=== PATIENT | male | born 1950 | race Caucasian/White ===

== ENCOUNTER 2017-11-29 09:37 | Inpatient (IN) | payer MEDICARE ==
[~2017-11-29] VITALS: Ht 182.9 cm; Wt 92.5 kg
[2017-11-29 10:21] LABS: BASOPHILS % 0.2 % (0.0-1.0); EOSINOPHILS % 0.2 % (0.0-6.0); HEMATOCRIT 42.8 % (38.2-49.6); HEMOGLOBIN 15.3 g/dL (14.0-18.0); LYMPHOCYTES # (AUTO) 1.2 (1.0-3.2); LYMPHOCYTES % 8.8 % (18.0-39.1); MEAN CORPUSCULAR HGB CONC 35.7 g/dL (31-35); MEAN CORPUSCULAR VOLUME 103.6 fL (81-99); MONOCYTES # (AUTO) 1.4 (0.2-0.8); MONOCYTES % 10.4 % (4.4-11.3); NEUTROPHILS # (AUTO) 10.9 (2.1-6.9); PLATELET COUNT 175 x10e3/uL (140-360); RED BLOOD COUNT 4.13 x10e6/uL (4.3-5.7); RED CELL DISTRIBUTION WIDTH 12.4 % (11.7-14.4)
[2017-11-29 10:31] LABS: ALANINE AMINOTRANSFERASE 22 IU/L (0-55); ALBUMIN 3.7 g/dL (3.5-5.0); ALBUMIN/GLOBULIN RATIO 0.9 (0.8-2.0); ALKALINE PHOSPHATASE 71 IU/L (40-150); ANION GAP 14.4 mmol/L (8-16); BLOOD UREA NITROGEN 18 mg/dL (7-26); BUN/CREATININE RATIO 20 (6-25); CARBON DIOXIDE 30 mmol/L (22-29); CHLORIDE 100 mmol/L (98-107); CREATININE, SERUM 0.89 mg/dL (0.72-1.25); EST GLOMERULAR FILTRATION RATE > 60 ML/MIN (60-); GLUCOSE 112 mg/dL (74-118); MAGNESIUM 1.4 MG/DL (1.3-2.1); PHOSPHORUS 3.1 MG/DL (2.3-4.7); POTASSIUM 3.4 mmol/L (3.5-5.1); SODIUM 141 mmol/L (136-145)
--- NOTE | 2017-11-29 11:08 | Diagnostic Imaging Report ---
Exam: Head CT without contrast History: Weakness, unable to walk Comparison studies: None Technique: Axial images were obtained from the skull base to the vertex. Coronal and sagittal images reconstructed from the axial data. Intravenous contrast: None Findings: Scalp: No abnormalities. Bones: No fractures, blastic or lytic lesions. Brain sulci: Mildly prominent. Ventricles: Mild compensatory dilatation. No hydrocephalus. Extra-axial spaces: No masses, no fluid collection. Parenchyma: No mass, acute hemorrhage or acute cortical vascular insults. A few hypodensities in the supratentorial white matter are nonspecific but most compatible with chronic small vessel ischemic changes. Sellar/suprasellar region: No abnormalities. Craniocervical junction: Patent foramen magnum. No Chiari one malformation. Incidental findings: Atherosclerotic calcifications in the carotid siphons an right intradural vertebral artery. Intraocular lens replacements related to previous cataract surgery. IMPRESSION: No acute intracranial abnormalities. Chronic findings: 1. Mild generalized volume loss. 2. Mild microvascular ischemic changes. Signed by: Dr. Reed Aaron M.D. on 11/29/2017 11:05 AM
[2017-11-29] MEDS ORDERED: MAGNESIUM SULFATE 2GM/50ML 50 ML IV ONE (11:15)
[2017-11-29] MEDS ORDERED: SODIUM CHLORIDE 0.9% 1000ML 1,000 ML IV ONE (11:15)
--- NOTE | 2017-11-29 11:32 | Diagnostic Imaging Report ---
PROCEDURE:L-SPINE COMPLETE COMPARISON:None. INDICATIONS:LOW BACK PAIN, CAN NOT WALK FINDINGS: There are 5 lumbar-type vertebral bodies. Degenerative disc changes in the lumbosacral spine, worse at L5-S1, with marked intervertebral disc space narrowing. Grade 1 anterolisthesis of L5 on L4. Facet hypertrophy. L5-S1. Anterior wedging of the L2 and L4 vertebral bodies with approximately 25% height loss. No acute, displaced fracture or dislocation. No lytic or blastic lesions. Bilateral oblique views show no spondylolysis. Atherosclerotic calcification of the distal abdominal aorta. The sacroiliac joints are unremarkable. CONCLUSION: Age-indeterminate compression deformities of the L2 and L4 vertebral bodies with approximately 25% height loss. Degenerative disc and joint changes in the lumbosacral spine, worse at L5-S1. Grade 1 anterolisthesis of L5 on L4. Alpesh Krause M.D. Dictated by: Alpesh Krause M.D. on 11/29/2017 at 11:32 Electronically approved by: Alpesh Krause M.D. on 11/29/2017 at 11:32
[2017-11-29] MEDS ORDERED: ENALAPRILAT IV INJ 1.25 MG/ML VIAL IV STA (12:13)
[2017-11-29] MEDS ORDERED: ACETAMINOPHEN 325 MG TAB PO ONE (12:15)
[2017-11-29 12:25] LABS: APPEARANCE,CSF CLEAR (CLEAR); COLOR,CSF COLORLESS (COLORLESS); TUBE NUMBER 3
[2017-11-29 12:26] LABS: WHITE BLOOD CELL,CSF 0 cells/uL (0-5)
[2017-11-29] MEDS ORDERED: SODIUM CHLORIDE FLUSH 10 ML SYR INJ PRN (13:00)
[2017-11-29] MEDS ORDERED: ONDANSETRON HCL INJ 2 MG/ML VIAL IV PRN (13:00)
--- OUTSIDE RECORDS SUMMARY | 2017-11-29 13:28 | XMS REPORT ---
Author Author [facility] Address Unknown Phone Unavailable Care Team Providers Care Field Cane Scale Clerk Name Role Phone CASA SEE Unavailable Unavailable Problems This patient has no known problems. Allergies, Adverse Reactions, Alerts This patient has no known allergies or adverse reactions. Medications This patient has no known medications. Results Test Description Test Time Test Comments Text Results Atomic Results Result Comments CT BRAIN WO [place] [address] Patient Name: SRIRAM JAY MR #: [id number] : 1950 Age/Sex: 67/M Req #: [id number] Adm Physician: Ordered by: CASA SEE MD Report #: [id number] Location: ER Room/Bed: Procedure: [id number] CT/CT BRAIN WO Exam Date: 11/29/17 Exam Time: 1023 REPORT STATUS: Signed Exam: Head CT without contrast History: Weakness, unable to walk Comparison studies: None Technique: Axial images were obtained from the skull base to the vertex. Coronal and sagittal images reconstructed from the axial data. Intravenous contrast: None Findings: Scalp: No abnormalities. Bones: No fractures, blastic or lytic lesions. Brain sulci: Mildly prominent. Ventricles: Mild compensatory dilatation. No hydrocephalus. Extra-axial spaces: No masses, no fluid collection. Parenchyma: No mass, acute hemorrhage or acute cortical vascular insults. A few hypodensities in the supratentorial white matter are nonspecific but most compatible with chronic small vessel ischemic changes. Sellar/suprasellar region: No abnormalities. Craniocervical junction: Patent foramen magnum. No Chiari one malformation. Incidental findings: Atherosclerotic calcifications in the carotid siphons an right intradural vertebral artery. Intraocular lens replacements related to previous cataract surgery. IMPRESSION: No acute intracranial abnormalities. Chronic findings: 1. Mild generalized volume loss. 2. Mild microvascular ischemic changes. Signed by: Dr. Frandy Aaron M.D. on 11/29/2017 11:05 AM Dictated By: FRANDY AARON MD 04 Transcribed By: JAKUB on 11/29/17 110 COPY TO: CASA SEE MD SP LUMBAR, COMPLETE MIN 4VW [place] [address] Patient Name: SRIRAM JAY MR #: [id number] : 1950 Age/Sex: 67/M Req #: [id number] Adm Physician: Ordered by: CASA SEE MD Report #: [id number] Location: ER Room/Bed: Procedure: [id number] DX/SP LUMBAR, COMPLETE MIN 4VW Exam Date: 11/29/17 Exam Time: 1100 REPORT STATUS: Signed PROCEDURE: L-SPINE COMPLETE COMPARISON: None. INDICATIONS: LOW BACK PAIN, CAN NOT WALK FINDINGS: There are 5 lumbar-type vertebral bodies. Degenerative disc changes in the lumbosacral spine, worse at L5-S1, with marked intervertebral disc space narrowing. Grade 1 anterolisthesis of L5 on L4. Facet hypertrophy. L5-S1. Anterior wedging of the L2 and L4 vertebral bodies with approximately 25% height loss. No acute, displaced fracture or dislocation. No lytic or blastic lesions. Bilateral oblique views show no spondylolysis. Atherosclerotic calcification of the distal abdominal aorta. The sacroiliac joints are unremarkable. CONCLUSION: Age- indeterminate compression deformities of the L2 and L4 vertebral bodies with approximately 25% height loss. Degenerative disc and joint changes in the lumbosacral spine, worse at L5-S1. Grade 1 anterolisthesis of L5 on L4. Rojelio Krause M.D. Dictated by: Rojelio Krause M.D. on 2017 at 11:32 Electronically approved by: Rojelio Krause M.D. on at 11:32 Dictated By: ROJELIO KRAUSE MD 1132 Transcribed By: JANAY on 11/29/17 1132 COPY TO: CASA SEE MD
[2017-11-29 14:05] LABS: KETONES,URINE 2+ (NEGATIVE); LEUKOCYTE ESTERASE ,URINE TRACE (NEGATIVE); NITRITE,URINE NEGATIVE (NEGATIVE); URINE UROBILINOGEN 4 mg/dL (0.2 - 1)
--- NOTE | 2017-11-29 14:05 | Diagnostic Imaging Report ---
PROCEDURE:KNEE THREE VIEWS BILATERAL COMPARISON:None. INDICATIONS:KNEE PAIN, OSTEOARTHRITIS FINDINGS: Right: The normal mineralization. No acute displaced fracture or dislocation. Mild tricompartmental degenerative joint disease of the right knee, with presence of patellar marginal osteophytes. Linear calcification in the femoral tibial compartments, consistent with chondrocalcinosis. No lytic or blastic lesions. Small suprapatellar effusion. Left: Normal mineralization. No acute displaced fracture or dislocation. No lytic or blastic lesions. Mild tricompartmental degenerative joint disease, with presence of patellar and marginal osteophytosis. Linear calcification in the media of femoral tibial space consistent with chondrocalcinosis. Moderate to large suprapatellar effusion. CONCLUSION: 1. No acute abnormalities. 2. Mild bilateral tricompartmental degenerative joint disease. 3. Small right and moderate to large left suprapatellar effusions. 4. Bilateral chondrocalcinosis. Alpesh Krause M.D. Dictated by: Alpesh Krause M.D. on 11/29/2017 at 14:06 Electronically approved by: Alpesh Krause M.D. on 11/29/2017 at 14:06
[2017-11-29 14:06] LABS: BILIRUBIN,URINE 1+ (NEGATIVE); CLARITY,URINE CLEAR (CLEAR); COLOR,URINE ORANGE (YELLOW); PROTEIN,URINE DIPSTICK 1+ (NEGATIVE)
[2017-11-29 14:21] LABS: EPITHELIAL CELLS,URINE FEW /LPF; RBC,URINE 0-5 /HPF (0-5); WBC,URINE (MAN) 0-5 /HPF (0-5)
[2017-11-29] MEDS ORDERED: GADOBENATE DIMEGLUMINE 1 ML IV ONE (14:54)
[2017-11-29] MEDS ORDERED: THIAMINE HCL INJ 100 MG/ML 2ML VIAL IV ONE (15:00)
[2017-11-29] MEDS ORDERED: THIAMINE HCL INJ 100 MG in SODIUM CHLORIDE 0.9% 50ML 50 ML IV SCH (15:45)
[2017-11-29] MEDS ORDERED: AMLODIPINE BESYLATE 10 MG TAB PO SCH (16:15)
[2017-11-29] MEDS ORDERED: LORAZEPAM INJ 2 MG/ML VIAL IV PRN (16:15)
[2017-11-29] MEDS ORDERED: HYDRALAZINE HCL 20 MG/ML VIAL IV PRN (16:15)
[2017-11-29] MEDS: FAMOTIDINE 20 MG TAB PO SCH (16:16)
[2017-11-29] MEDS: ENOXAPARIN SOD INJ 40 MG/0.4 ML SYR SC SCH (16:16)
--- NOTE | 2017-11-29 17:46 | History and Physical ---
PRIMARY CARE PHYSICIAN: The patient does not have a PCP. He has not been to the doctor in years. CHIEF COMPLAINT: Bilateral leg weakness and urinary and fecal incontinence. HISTORY OF PRESENT ILLNESS: Mr. Edwards is a 67-year-old gentleman who has had progressive ambulatory dysfunction for the past year, getting slower and weaker and having more difficulty getting up. He has bilateral arthritis of the knees with some joint effusions. Two days ago the patient became incontinent of stool and urine and became progressively weaker in the lower extremities with difficulty getting up and walking. The patient does have a history of back surgery 30 years ago and left knee surgery 30 years ago. REVIEW OF SYSTEMS: He denies fever, chills or weight loss. He denies sinus congestion or sore throat. Denies chest pain or palpitations. Denies shortness of breath, wheezing or cough. Denies abdominal pain, nausea, vomiting or melena. He has fecal incontinence. He denies dysuria or flank pain. He has urinary incontinence. He has joint pain in both knees. He has lower extremity weakness. He denies headache or vertigo, but he does have some dementia. He denies loss of consciousness. He has some depression and has a history of bipolar and anxiety and extensive alcohol consumption. PAST MEDICAL HISTORY: Significant for hypertension for which he has not been on any medication for the last couple of years. He says his blood pressure has been good at home. He is taking no chronic medication. He does have a history of heavy alcohol consumption in the past. He is on no chronic medication. He has a history of back and knee surgery many years ago. ALLERGIES: NO KNOWN DRUG ALLERGIES. FAMILY HISTORY: Unremarkable. SOCIAL HISTORY: The patient is . Sudanese is his primary language. He lives alone. He has good social support. He is generally independently functioning, although has required quite a bit of assistance in the last couple of days. PHYSICAL EXAMINATION PSYCHIATRIC: The patient is alert and oriented times 3. He does have some mild confusion on more elaborate questioning. He is in no acute distress. Has a normal body habitus. VITAL SIGNS: Blood pressure initially 174/95, currently 148/87. Pulse 95 originally, now 77. Respiratory rate 16. O2 sat 100% on room air. Temperature 99.8. HEENT: Head is atraumatic. His eyes are anicteric with clear conjunctivae. Ears and nares are without erythema or discharge. Oropharynx is clear. NECK: Is supple with no mass or thyromegaly. LYMPHATIC SYSTEM: He has no cervical, inguinal or axillary adenopathy. CARDIOVASCULAR: Heart has a regular rate and rhythm without murmur or heart extra sounds. He has no carotid bruit. Has no peripheral edema. Weak dorsal pedal pulses. RESPIRATORY: Clear to auscultation and percussion with normal respiratory effort. GASTROINTESTINAL: Abdomen is soft without organomegaly, masses or tenderness. Normal bowel sounds present. CUTANEOUS: His skin is warm and dry to touch with no rash or skin breakdown. MUSCULOSKELETAL: His joints are in normal alignment. Both of his knees are somewhat hypertrophic and there is moderate effusion on the left knee and small effusion on the right knee. There is some warmth to palpation. He has no calf tenderness. NEUROLOGIC: Shows weakness in the lower extremities, left side greater than right, difficult to lift leg against gravity. He has no reflexes, but his Babinski's are downgoing. He has normal strength and sensation in the upper extremities. He stated that he was incontinent of bladder and bowel. DIAGNOSTIC STUDIES: CT scan of brain was negative. Lumbar spine plain x-ray shows compression fracture with 25% loss of height at L2 and L4 and significant DJD with degenerative disk desiccation and narrowing of L5, S1. Bilateral knee x-ray showed severe arthritic changes with bilateral effusions, left greater than right, moderate on the left and small on the right. His UA is clear. Lumbar puncture is negative. Oligoclonal bands are still pending. His TSH is 7.451. Chemistry shows normal electrolytes. CO2 30. Creatinine 0.89. BUN 18 for a normal GFR. Calcium is 11.0 which is elevated. Glucose 112. Phosphate 3.1. Magnesium 1.4. Transaminases slightly elevated. AST 35. ALT 22. Bilirubin slightly elevated at 1.3 and alkaline phos is normal at 71. CBC shows a white count of 13.5 with 80% neutrophils, 9% lymphocytes, 10% monocytes. Hemoglobin 15.3, hematocrit 42.8 and platelet count 175,000. He has macrocytic indices. IMPRESSION AND PLAN 1. Ambulatory dysfunction. The patient has an MRI pending to rule out lumbar cord compression. 2. Bilateral lower extremity weakness. Again MRI pending to rule out lumbar cord compression. Neurology has been consulted for evaluation as well. 3. Urinary and fecal incontinence. Again, MRI pending to rule out lumbar cord compression and neuro consult. 4. New mild dementia, possibly related to previous alcoholism. Again at this point will consult neuro and possibly can add Aricept and Namenda 10 mg each at bedtime if neuro agrees. 5. Bilateral arthritis of knees with small effusions. Will monitor for now. 6. History of alcoholism. Patient had been given thiamine. Will use Ativan as needed for possible withdrawal. 7. Hypertension. The patient has been on no medications lately. Will start low-dose Norvasc and p.r.n. IV hydralazine. 8. For prophylaxis, the patient is on Lovenox for DVT prophylaxis and Pepcid for GI prophylaxis. Job#: [id number] TIM
[2017-11-30 05:39] LABS: BASOPHILS % 0.3 % (0.0-1.0); EOSINOPHILS # (AUTO) 0.1 (0.0-0.4); EOSINOPHILS % 1.2 % (0.0-6.0); HEMATOCRIT 36.5 % (38.2-49.6); LYMPHOCYTES # (AUTO) 1.1 (1.0-3.2); LYMPHOCYTES % 12.5 % (18.0-39.1); MEAN CORPUSCULAR HEMOGLOBIN 35.9 pg (28-32); MEAN CORPUSCULAR HGB CONC 34.5 g/dL (31-35); MONOCYTES # (AUTO) 0.9 (0.2-0.8); MONOCYTES % 9.8 % (4.4-11.3); NEUTROPHILS # (AUTO) 6.9 (2.1-6.9); NEUTROPHILS % 75.9 % (38.7-80.0); PLATELET COUNT 152 x10e3/uL (140-360); RED BLOOD COUNT 3.51 x10e6/uL (4.3-5.7); RED CELL DISTRIBUTION WIDTH 12.2 % (11.7-14.4)
[2017-11-30 05:44] LABS: HEMOGLOBIN 12.6 g/dL (14.0-18.0)
[2017-11-30 06:10] LABS: ALANINE AMINOTRANSFERASE 16 IU/L (0-55); ALBUMIN 2.8 g/dL (3.5-5.0); ALBUMIN/GLOBULIN RATIO 0.8 (0.8-2.0); ALKALINE PHOSPHATASE 53 IU/L (40-150); ANION GAP 12.4 mmol/L (8-16); BLOOD UREA NITROGEN 16 mg/dL (7-26); BUN/CREATININE RATIO 22 (6-25); CALCIUM 9.5 mg/dL (8.4-10.2); CARBON DIOXIDE 27 mmol/L (22-29); CHLORIDE 103 mmol/L (98-107); CREATININE, SERUM 0.73 mg/dL (0.72-1.25); EST GLOMERULAR FILTRATION RATE > 60 ML/MIN (60-); GLUCOSE 102 mg/dL (74-118); MAGNESIUM 1.5 MG/DL (1.3-2.1); POTASSIUM 3.4 mmol/L (3.5-5.1); SODIUM 139 mmol/L (136-145)
[2017-11-30] MEDS: FAMOTIDINE 20 MG TAB PO SCH ×2 (07:10→17:59)
[2017-11-30] MEDS ORDERED: THIAMINE HCL INJ 100 MG/ML 2ML VIAL IV SCH (09:00)
[2017-11-30] MEDS ORDERED: AMLODIPINE BESYLATE 5 MG TAB PO SCH (09:00)
[2017-11-30] MEDS ORDERED: THIAMINE HCL INJ 100 MG in SODIUM CHLORIDE 0.9% 50ML 50 ML IV SCH (09:00)
--- NOTE | 2017-11-30 10:32 | Diagnostic Imaging Report ---
Exam: Lumbar spine MRI without with IV contrast History: Low back pain with bilateral leg weakness Comparison studies: Lumbar spine x-ray 11/29/2017. Technique: Sagittal and axial T2 , sagittal T1 and IR, axial spin density oblique. Postcontrast sagittal and axial T1 FS. Intravenous contrast: None I was made aware of this exam on the morning of 11/30/2017. Findings: Number of lumbar vertebral bodies: 5. Alignment: Normal lordosis. No scoliosis. Soft tissues: No T2 hyperintense inflammatory changes. Paraspinal muscles: No signal abnormalities. Well-preserved. No atrophic changes Lower thoracic cord: Normal in signal and morphology. The tip of the conus is at L1-L2. Cauda equina: No masses. No arachnoiditis. Vertebrae: Acute L4 superior endplate compression fracture results in approximately 25% height loss. No associated retropulsion. There there is diffuse edema and reactive enhancement throughout the L4 vertebral body. Reactive changes extend to the left pedicle. There reactive changes of synovitis at the L3-L4 facets which may be posttraumatic and/or degenerative. There is no soft tissue mass or other concerning features to indicate underlying malignancy. Probable incomplete age-indeterminate fracture through the right L4 pars interarticularis. There is mild enhancement along the overlying ligamenta flava which may may reflect acute stress injury. Chronic-appearing L3 superior endplate depression deformity results in approximately 20% height loss. There is mild edema along the superior endplate on the right which may reflect acute on chronic stress-related change. Degenerative changes: T11-T12: Disc bulge and mild facet arthrosis do not result in significant canal or foraminal stenosis. T12-L1: Mildly degenerated disc. Patent canal and foramina. L1-L2: Mildly degenerated disc. Mild symmetric bulging disc. Patent canal and foramina. L2-L3: Symmetric bulging disc and mild facet arthrosis without significant canal or foraminal stenosis. There is mild reactive enhancement at the facets related to mild synovitis. L3-L4: Mild loss of T2 disc signal. Asymmetric left disc bulge, thickened ligamentum flavum and facet arthrosis with mild mild canal stenosis. No significant foraminal stenosis. Moderate reactive changes at the facets may be posttraumatic and/or degenerative. L4-L5: Mild loss of T2 disc signal. Symmetric disc bulge, thickened ligamentum flavum and bilateral facet arthrosis with mild canal and bilateral foraminal stenosis. There are small facet effusions with mild reactive changes related to synovitis. L5-S1: Severely degenerated disc with loss of disc height and loss of T2 disc signal. There are mixed degenerative endplate changes with mild endplate edema. Disc osteophyte complex and facet arthrosis result in severe bilateral foraminal stenosis and mild narrowing of the left subarticular recess. There are surgical changes of laminotomy on the left. IMPRESSION: 1. Acute L4 compression fracture (approximate 25% vertebral body height loss) without retropulsion. 2. Age-indeterminate incomplete right L4 pars interarticularis fracture with reactive synovitis at the L3-L4 facets which may reflect acute stress-related changes superimposed on degenerative changes. 3. Chronic-appearing L2 superior endplate compression fracture with mild edema along the L2 endplate which may indicate acute on chronic stress injury. 4. Degenerative changes as described most notable for severe L5-S1 disc degeneration and bilateral foraminal stenosis and multilevel facet arthrosis. 5. Left laminotomy changes at L5-S1. Recommendation: Though L4 fracture does not appear to be related to underlying malignancy, recommend follow-up lumbar spine MRI without/with IV contrast in 3-6 months (or sooner as clinically warranted) to allow time for vertebral body edema to improve to further evaluation. Finding's were discussed with Silvia Betancourt RN at 10:35 AM on . Signed by: Dr. Reed Aaron M.D. on 11/30/2017 10:43 AM
[2017-11-30] MEDS ORDERED: GADOBENATE DIMEGLUMINE 1 ML IV ONE (11:18)
--- NOTE | 2017-11-30 13:05 | Diagnostic Imaging Report ---
EXAMINATION: MRI of the thoracic spine without and with contrast HISTORY: Back pain, lower extremity weakness COMPARISON: Lumbar spine MRI on 11/29/2017 TECHNIQUE: Sagittal T1 without contrast, T2, and STIR; axial T2. Coronal T2. Postcontrast axial and sagittal T1 fat sat. Intravenous contrast: 17 mL of MultiHance FINDINGS: Curvature: Normal kyphosis. Vertebrae: -Minimal chronic anterior wedging of the T5, T6 and T7 vertebral bodies. -Chronic endplate degenerative changes from T4 to T11. Superimposed Modic type I endplate degenerative changes with subchondral bone marrow edema at T5-T6, T6-T7 and T7-T8. -Shallow Schmorl nodes from T5 to T11. Discs: Decreased disc height and T2 signal intensity, mild symmetric disc bulge and marginal endplate osteophytes from T4-T5 to T11-T12, without significant spinal canal stenosis. Spinal canal: No mass or abnormal blood vessels. No abnormal enhancement. Spinal cord: Normal size and signal intensity. No abnormal enhancement. Foramina: Unremarkable. Paraspinal soft tissues: Unremarkable. Proximal ribs: No abnormal signal intensity. IMPRESSION: 1. No acute thoracic spine fractures. 2. Modic type I endplate degenerative changes with subchondral bone marrow from T5-T6 to T7-T8. 3. Spondylosis from T4-T5 to T11-T12 without significant spinal canal or foraminal stenoses. Signed by: Dr. Alecia Hernandez M.D. on 11/30/2017 1:02 PM
[2017-11-30 17:30] VITALS: BP 148/84
[2017-11-30 17:36] VITALS: BP 148/84
[2017-11-30] MEDS: ENOXAPARIN SOD INJ 40 MG/0.4 ML SYR SC SCH (17:59)
[2017-11-30] MEDS ORDERED: MORPHINE SULFATE 2 MG/ML SYR IV PRN (18:30)
[2017-11-30] MEDS ORDERED: TRAMADOL HCL 50 MG TAB PO PRN (18:30)
[2017-11-30] MEDS ORDERED: MAGNESIUM SULFATE 2GM/50ML 50 ML IV ONE (18:45)
[2017-11-30] MEDS: ACETAMINOPHEN/CODEINE 300MG - 30MG TAB PO PRN (18:52)
[2017-11-30] MEDS ORDERED: SODIUM CHLORIDE 0.9% 250ML 250 ML ONE (19:42)
[2017-11-30] MEDS: NICOTINE 21 MG/EA PATCH TOP SCH (19:45)
[2017-11-30 20:00] VITALS: BP 151/73
[2017-11-30 20:09] VITALS: BP 148/84
[2017-11-30] MEDS: MEMANTINE 10 MG TAB PO SCH (21:50)
[2017-11-30] MEDS: DONEPEZIL HCL 5 MG TAB PO SCH (21:50)
[2017-12-01] VITALS (8 sets, daily range): BP systolic 132–164; BP diastolic 63–82
[2017-12-01] MEDS: FAMOTIDINE 20 MG TAB PO SCH ×2 (08:40→18:01)
[2017-12-01] MEDS: NICOTINE 21 MG/EA PATCH TOP SCH (09:00)
[2017-12-01] MEDS: THIAMINE HCL INJ 100 MG in SODIUM CHLORIDE 0.9% 50ML 50 ML IV SCH (09:32)
[2017-12-01] MEDS: NIFEDIPINE CR 30 MG TAB PO SCH (09:32)
[2017-12-01 10:57] LABS: INR 1.06
[2017-12-01 10:58] LABS: PARTIAL THROMBOPLASTIN TIME 27.9 seconds (23.8-35.5)
[2017-12-01 13:23] LABS: FOLATE 3.5 ng/mL (7.0-15.4)
--- NOTE | 2017-12-01 15:25 | Consultation ---
DATE OF CONSULTATION: December 01, 2017, at 11:30 in the morning. NEUROLOGICAL CONSULTATION A patient of Dr. Shawn Hester. REASON FOR CONSULTATION: Weakness of the lower extremities. HISTORY OF PRESENT ILLNESS: This is a 67-year-old male who lives alone, and during the time of this examination dull expression, which he has been in the last 2 days. Then Tuesday he was unable to get up and walk, reason for which continued with that and was brought to the emergency room. According to the daughter, for quite some time he has been having some problem with is walking. He has been slow walking, a little bit unsteady, apparently a little bit broad-based. Does not have good nutrition according to his daughter, does not eat well. He is quite a heavy drinker. When they brought him to the emergency room, they found that also he has urine and fecal incontinence. He denies any neck, thoracic or back pain. He denies any pain of the legs. He has been for a long time complaining of numbness and tingling in both feet. Also, he has been for quite a while having some short-term memory. According to the daughter, he forgets very easily when he has to do something or he misplaces things. He denies any headaches. No visual disturbance. No speech nor swallowing difficulty. PAST HISTORY: History of hypertension. Apparently not taking medication. He had lumbar laminectomy 30 years ago, he had also knee surgery on the left several years ago, and this short-term memory. MEDICATION: As mentioned, medication none. ALLERGIES: NONE KNOWN. SOCIAL HISTORY: As mentioned, a heavy drinker. REVIEW OF SYSTEMS: All 12 steps negative. GENERAL PHYSICAL EXAMINATION VITAL SIGNS: Blood pressure was 169/73, pulse 71, temperature 98.8. NEUROLOGIC Mental status: He is alert and follows commands well. Speech clear, no dysarthria or dysphagia. He is partially oriented in time. Short-term memory according to his daughter. Cranial nerves: Pupils were both equal and reactive. External ocular movements were full. Visual field was normal. No facial weakness. Facial sensation normal. Tongue protrudes midline. Palatal movements normal. Motor: Upper extremities: No evidence of muscle wasting. Muscle strength: Proximal and distal muscles both upper extremities 5/5. Lower extremities: Patient is able to elevate each leg against gravity to approximately 60 degrees. Flexion of the hips is very mild and is 4/5 bilaterally. Flexion and extension of the knees 5/5. Dorsiflexion of the ankles 5/5. Plantarflexion 5/5. Dorsal extension 5/5. Deep tendon reflexes: Triceps, biceps, radials 1+. Knee jerks absent. Ankle jerks absent bilaterally. Sensory examination: To pinprick there is hypoesthesia in a stocking distribution both lower extremities. Vibration sense is absent up to the knees. HEAD: Normocephalic. NECK: Supple. Carotid pulsations were present bilaterally. There were no bruits. LABORATORY WORKUP: CBC: On admission WBC was 13,590 and yesterday was 9011. Hemoglobin 12.5, hematocrit 36.5, platelets 152,000. Chemistry: Sodium 139, potassium 3.4, BUN 16, creatinine 0.73, estimated GFR greater than 60, calcium 9.5. Liver enzymes are all normal. C-reactive protein is 235, which is elevated. TSH 2451. They did a spinal tap in the emergency room. The spinal fluid was clear, colorless, with 0-1 WBC, 1 RBC, glucose 82, protein was 35.4. A CT scan of the brain shows just chronic small-vessel disease bilaterally, mild cortical atrophy. MRI of the lumbar spine shows acute L4 compression fracture without retropulsion. There are chronic degenerative changes without spinal canal stenosis with no evidence of a herniated disk. MRI of his thoracic spine also shows some chronic degenerative changes without spinal canal stenosis with probable old compression of the spinal cord. Urinalysis was positive: 2 ketones, 1+ blood. Bilirubin was 1+, which is high. Urobilinogen was 4. IMPRESSION 1. Gait impairment probably related to peripheral neuropathy which is advanced, etiology undetermined, possibility of alcohol neuropathy. 2. 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 3. Chronic compression fracture of the lumbar spine with an L1, acute L4-5 with no spinal stenosis. 4. Chronic degenerative changes of the thoracic spine without compression of the spinal cord. RECOMMENDATION: B12 level, folate, STEVE, sed rate, and rehab consult. I have discussed at length with the daughter, and they asked multiple questions. Questions have been answered. Job#: [id number] EV
--- NOTE | 2017-12-01 17:30 | Consultation ---
DATE OF CONSULTATION: December 01, 2017 REFERRING PHYSICIAN: Dr. Shawn Hester I would like to thank Dr. Hester for asking me to see Mr. Edwards in consultation. REASONS FOR CONSULTATION 1. Difficulty ambulating. 2. Left knee arthritis and effusion. 3. Chronic low back pain. 4. Dementia. 5. EtOH abuse. HISTORY: A 67-year-old male, who has a history of alcohol abuse, who came into to the hospital because he was having difficulty with mobilizing, getting around. He has some joint effusions to knees, as well as bilateral knee arthritis, but denies any trauma to the left knee, but he has a lot of pain there. Patient also had some progressive weakness, incontinence of bowel and bladder. Dr. Hargrove was consulted. Neurologic consultation was obtained. 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 Patient has been having some difficulty mobilizing and being asked knees. REVIEW OF SYSTEMS GENERAL: Denies fever or chills. Denies sweats. EYES: Denies any diplopia. SINUSES: Denies any congestion. CHEST: No chest pains. LUNGS: Denies any hemoptysis. GI: Denies. : Denies. MUSCULOSKELETAL: Has knee arthritis and back pain and his legs give out, he says. NEUROLOGIC: Has some urine incontinence. Denies history of loss of consciousness. PSYCHIATRIC: He has some bipolar and anxiety disorder. PAST MEDICAL HISTORY: Hypertension for which he has not been on medications. History of back and knee surgeries many year ago. ALLERGIES: NO KNOWN DRUG ALLERGIES. FAMILY HISTORY: Denies. SOCIAL HISTORY: Lives by himself in a 1-story home. Retired airframe and powerplant technician. He says, he was ambulatory, got around without any kind of assistive device. HABITS: He smoked for quite a number of years. He drinks quite a bit, at least 6-pack a day although he will not really . X-rays today 3-view knee shows no acute abnormalities, mild bilateral tricompartmental degenerative joint disease, small right and [id number] left suprapatellar effusions, bilateral . Cervical spine MRI is pending. Thoracic spine MRI shows no acute thoracic fractures, moderate Modic type-1 endplate degenerative changes at T5-6 to T7-8. Spondylosis around T4-5 to T11-12 without significant spinal canal or foraminal stenosis. He had a lumbar spine MRI, which showed acute L4 compression fracture without retropulsion. Age-indeterminate incomplete right L4 pars interarticularis fracture with active synovitis. Chronic-appearing L2 superior endplate compression fracture. Brain CT showed mild generalized volume loss. Physical therapy piper, had lower extremity weakness, he really would not gait with the physical therapist, did work on lower extremity strengthening. Did complain of left knee pain. PHYSICAL EXAMINATION GENERAL: Patient awake and alert, notably pleasant, in no apparent distress at this time. EYES: Gaze conjugate. ORAL: Tongue is midline. NECK: Supple. HEART: Regular. LUNGS: Fair air entry. ABDOMEN: Nontender, nondistended. EXTREMITIES: Functional range of motion to the arms, limited range of motion to the knees bilaterally. NEURO: Sensory piper, he has not really complaint much of knee, lower extremity sensory loss. Muscle testing demonstrates pretty much 5/5 strength of upper extremities bilaterally, but he has severe pain more so on left compared to right with passive range of motion to the left knee. Hip flexion extension was 3+/5 to 4-/5 strength with range of motion. Knee range of motion was limited on the left. A 5/5 strength in ankle dorsiflexion, plantar flexion. IMPRESSIONS 1. Impaired gait mobility arthritis bilaterally left worse than right with patellar effusion. 2. Patient with impaired gait and mobility. 3. EtOH abuse. 4. Hypertension. 5. Chronic low back pain. PLAN: Perhaps, he could benefit from evacuation of fluid from the joint space. Will consult Dr. Jiménez for that. PT has been initiated. There is unfortunately no OT in this facility. Will see how he responds. Thank you once again for allowing me to participate in the care of this pleasant, but unfortunate patient. Job#: [id number] [id number]
[2017-12-01] MEDS: ENOXAPARIN SOD INJ 40 MG/0.4 ML SYR SC SCH (18:01)
[2017-12-01] MEDS: ACETAMINOPHEN/CODEINE 300MG - 30MG TAB PO PRN (18:22)
[2017-12-01] MEDS: MEMANTINE 10 MG TAB PO SCH (20:33)
[2017-12-01] MEDS: DONEPEZIL HCL 5 MG TAB PO SCH (20:33)
[2017-12-02] VITALS (7 sets, daily range): BP systolic 138–159; BP diastolic 61–83
[2017-12-02 06:56] LABS: BASOPHILS % 0.5 % (0.0-1.0); EOSINOPHILS # (AUTO) 0.3 (0.0-0.4); EOSINOPHILS % 4.1 % (0.0-6.0); HEMATOCRIT 36.4 % (38.2-49.6); HEMOGLOBIN 12.8 g/dL (14.0-18.0); LYMPHOCYTES # (AUTO) 1.3 (1.0-3.2); LYMPHOCYTES % 17.4 % (18.0-39.1); MEAN CORPUSCULAR HEMOGLOBIN 36.4 pg (28-32); MEAN CORPUSCULAR HGB CONC 35.2 g/dL (31-35); MEAN CORPUSCULAR VOLUME 103.4 fL (81-99); MONOCYTES # (AUTO) 1.3 (0.2-0.8); MONOCYTES % 17.7 % (4.4-11.3); NEUTROPHILS # (AUTO) 4.4 (2.1-6.9); NEUTROPHILS % 59.9 % (38.7-80.0); PLATELET COUNT 184 x10e3/uL (140-360); RED BLOOD COUNT 3.52 x10e6/uL (4.3-5.7); RED CELL DISTRIBUTION WIDTH 11.9 % (11.7-14.4)
[2017-12-02 07:20] LABS: ANION GAP 10.9 mmol/L (8-16); BLOOD UREA NITROGEN 9 mg/dL (7-26); BUN/CREATININE RATIO 12 (6-25); CALCIUM 9.4 mg/dL (8.4-10.2); CARBON DIOXIDE 31 mmol/L (22-29); CHLORIDE 101 mmol/L (98-107); CREATININE, SERUM 0.78 mg/dL (0.72-1.25); EST GLOMERULAR FILTRATION RATE > 60 ML/MIN (60-); GLUCOSE 115 mg/dL (74-118); POTASSIUM 3.9 mmol/L (3.5-5.1); SODIUM 139 mmol/L (136-145)
[2017-12-02] MEDS: NIFEDIPINE CR 30 MG TAB PO SCH (08:50)
[2017-12-02] MEDS: THIAMINE HCL INJ 100 MG in SODIUM CHLORIDE 0.9% 50ML 50 ML IV SCH (08:50)
[2017-12-02] MEDS: FAMOTIDINE 20 MG TAB PO SCH ×2 (08:54→16:50)
[2017-12-02] MEDS: NICOTINE 21 MG/EA PATCH TOP SCH (08:55)
[2017-12-02] MEDS: ACETAMINOPHEN/CODEINE 300MG - 30MG TAB PO PRN (11:24)
--- NOTE | 2017-12-02 14:05 | Consultation ---
DATE OF CONSULTATION: December 02, 2017 REASON FOR CONSULTATION: Bilateral knee pain and swelling. HISTORY OF PRESENT ILLNESS: This patient is a 67-year-old gentleman who has a reported history of progressive ambulatory dysfunction. He states he has had more and more problems walking and getting up. He has a significant history of arthritis in both knees. The patient is currently admitted for progressive weakness in the lower extremities. He has an MRI that shows an L4 lumbar compression fracture. He is currently awaiting kyphoplasty. We are only consulted to see him for his knees. PAST MEDICAL HISTORY: See H and P. PAST SURGICAL HISTORY: Significant for left knee surgery roughly 35 years ago. He also has a history of back surgery. SOCIAL HISTORY: The patient admits to a past history of alcohol abuse. He is a smoker. He lives alone and is generally independent of his ADLs. PHYSICAL EXAMINATION GENERAL: He is in no apparent distress. He is pleasant. He answers questions appropriately. NEUROLOGIC: Gross inspection of both knees show 1+ effusion in both knees. There is no erythema and skin is otherwise normal. He has multiple surgical scars around the left knee. Skin is otherwise normal. Range of motion in his right knee is uncomfortable, and from 0 degrees to 120 degrees of flexion. He has mild medial and lateral joint line tenderness to palpation in the right knee. Range of motion of left knee is severely limited and painful, and from 0 degrees to 40 degrees of flexion. Both knees are grossly stable. He has mild quadriceps atrophy in both legs. Both calves are soft and nontender. Distal neurovascular exam is normal. IMAGING: X-rays of both knees were obtained. He has moderate arthritis in the right knee and advanced arthritis in the left knee. Both knees have moderate effusions on x-ray. ASSESSMENT AND PLAN: This is a 67-year-old male who has advanced arthritic changes in both knees. The findings and options were discussed with the patient and his daughter. He has multiple skeletal complaints. The most pressing concern is his progressive ambulatory dysfunction. He needs to be mobilized with physical therapy. His left knee pain is inhibiting his ability to work with therapy and ambulate. After discussing the options, we elected to proceed with aspiration and injection of both knees. After obtaining verbal consent from the patient, I prepped the left knee in a sterile manner. I anesthetized the site using 3 mL of 2% lidocaine. Using an anterolateral approach and an 18-gauge needle, I aspirated roughly 25 mL of clear bloody fluid. The fluid appeared benign. I then injected 1 mL of Depo-Medrol 40 mg and with 6 mL of 2% lidocaine. A bandage was applied. He tolerated the aspiration and injection well. The same exact procedure was done on the right side. I aspirated 20 mL of clear yellowish synovial fluid on the right side. This appeared benign. I also injected 1 mL of Depo-Medrol 40 mg and 6 mL of 2% lidocaine. He tolerated the aspiration and injection well on the right side as well. The patient reported instant improvement in his pain in both knees. We will plan on mobilizing him with physical therapy later today. At some point, he will likely want to consider an elective knee replacement. He is encouraged to follow up with me on an outpatient basis. My contact information was provided to the family. Thank you for the consultation. DICTATED BY ANURAG FLOREZ PA-C Job#: [id number] [place]
[2017-12-02] MEDS: HYDROCHLOROTHIAZIDE 25 MG TAB PO SCH (16:42)
[2017-12-02] MEDS: ENOXAPARIN SOD INJ 40 MG/0.4 ML SYR SC SCH (16:50)
--- NOTE | 2017-12-02 17:39 | Diagnostic Imaging Report ---
History: 67-year-old male with bilateral leg weakness Comparison studies: None Technique: Sagittal T1, T2 and IR, axial T2 and axial gradient echo Intravenous contrast: None Findings: Alignment: Straightening is seen within the cervical spine with kyphosis at C3-C4 No scoliosis. Cervicomedullary junction: No abnormalities. Patent foramen magnum. Soft tissues: No T2 hyperintense inflammatory changes. Spinal cord: Normal in size and signal from the foramen magnum through T4 Vertebrae: No fractures, infection or neoplasm. Degenerative changes: C2-C3: Decreased T2 signal within the disc. Minimal symmetric bulging disc. Thickening of the ligamentum flavum. Mild narrowing of the spinal canal. No significant foraminal narrowing. C3-C4: Decreased T2 signal and near complete loss of disc height. Spinal canal widely patent. Bilateral foraminal widely patent. C4-C5: Complete loss of disc height. Spinal canal widely patent. Bilateral foraminal widely patent. C5-C6: Complete loss of disc height. Symmetric bulging disc with 2 mm of posterior mass effect. Mild to moderate narrowing of spinal canal. Mild to moderate narrowing of the left foramen. C6-C7: Complete loss of disc height. Symmetric bulging disc with 2 mm of mass effect. Mild thickening of the ligament flavum. Mild to moderate narrowing of the spinal canal. Moderate left foraminal narrowing. C7-T1: Complete loss of disc height. Mild narrowing of the spinal canal. Bilateral foramen widely patent. IMPRESSION: 1. Near to complete loss of disc height from C4 through T1 2. Spinal canal narrowing greatest at C5-C6 3. Foraminal narrowing greatest on the left at C6-C7 Signed by: Dr. Neftali Roth M.D. on 12/02/2017 5:36 PM
[2017-12-02] MEDS: MEMANTINE 10 MG TAB PO SCH (20:45)
[2017-12-02] MEDS: DONEPEZIL HCL 5 MG TAB PO SCH (20:45)
[2017-12-03] VITALS (7 sets, daily range): BP systolic 129–174; BP diastolic 70–82
[2017-12-03] MEDS: THIAMINE HCL INJ 100 MG in SODIUM CHLORIDE 0.9% 50ML 50 ML IV SCH (08:32)
[2017-12-03] MEDS: FAMOTIDINE 20 MG TAB PO SCH ×2 (08:32→16:26)
[2017-12-03] MEDS: NICOTINE 21 MG/EA PATCH TOP SCH (08:32)
[2017-12-03] MEDS: HYDROCHLOROTHIAZIDE 25 MG TAB PO SCH (08:32)
[2017-12-03] MEDS: NIFEDIPINE CR 30 MG TAB PO SCH (08:32)
[2017-12-03] MEDS: ENOXAPARIN SOD INJ 40 MG/0.4 ML SYR SC SCH (16:26)
[2017-12-03] MEDS: DONEPEZIL HCL 5 MG TAB PO SCH (21:07)
[2017-12-03] MEDS: MEMANTINE 10 MG TAB PO SCH (21:07)
[2017-12-04] VITALS: BP 135/71
[2017-12-04 07:56] VITALS: BP 143/77
[2017-12-04 08:06] LABS: BASOPHILS % 0.4 % (0.0-1.0); EOSINOPHILS # (AUTO) 0.1 (0.0-0.4); EOSINOPHILS % 1.1 % (0.0-6.0); HEMOGLOBIN 13.8 g/dL (14.0-18.0); LYMPHOCYTES # (AUTO) 1.5 (1.0-3.2); LYMPHOCYTES % 14.9 % (18.0-39.1); MEAN CORPUSCULAR HEMOGLOBIN 36.4 pg (28-32); MEAN CORPUSCULAR HGB CONC 34.5 g/dL (31-35); MEAN CORPUSCULAR VOLUME 105.5 fL (81-99); MONOCYTES # (AUTO) 1.1 (0.2-0.8); NEUTROPHILS # (AUTO) 7.3 (2.1-6.9); NEUTROPHILS % 72.3 % (38.7-80.0); PLATELET COUNT 277 x10e3/uL (140-360); RED BLOOD COUNT 3.79 x10e6/uL (4.3-5.7); RED CELL DISTRIBUTION WIDTH 12.1 % (11.7-14.4)
[2017-12-04 08:30] LABS: ANION GAP 11.4 mmol/L (8-16); BLOOD UREA NITROGEN 19 mg/dL (7-26); BUN/CREATININE RATIO 26 (6-25); CALCIUM 9.7 mg/dL (8.4-10.2); CARBON DIOXIDE 31 mmol/L (22-29); CHLORIDE 99 mmol/L (98-107); CREATININE, SERUM 0.74 mg/dL (0.72-1.25); EST GLOMERULAR FILTRATION RATE > 60 ML/MIN (60-); GLUCOSE 104 mg/dL (74-118); POTASSIUM 3.4 mmol/L (3.5-5.1); SODIUM 138 mmol/L (136-145)
[2017-12-04] MEDS: THIAMINE HCL INJ 100 MG in SODIUM CHLORIDE 0.9% 50ML 50 ML IV SCH (09:09)
[2017-12-04] MEDS: HYDROCHLOROTHIAZIDE 25 MG TAB PO SCH (09:09)
[2017-12-04] MEDS: FAMOTIDINE 20 MG TAB PO SCH ×2 (09:09→16:44)
[2017-12-04] MEDS: NIFEDIPINE CR 30 MG TAB PO SCH (09:09)
[2017-12-04] MEDS: NICOTINE 21 MG/EA PATCH TOP SCH (09:09)
[2017-12-04] MEDS ORDERED: POTASSIUM CHLORIDE 20 MEQ TAB CR PO ONE (10:15)
[2017-12-04] MEDS: ENOXAPARIN SOD INJ 40 MG/0.4 ML SYR SC SCH (16:44)
[2017-12-04 16:53] VITALS: BP 135/74
[2017-12-04 20:00] VITALS: BP 126/68
[2017-12-04 20:30] VITALS: BP 126/67
[2017-12-04] MEDS: MEMANTINE 10 MG TAB PO SCH (20:40)
[2017-12-04] MEDS: DONEPEZIL HCL 5 MG TAB PO SCH (20:40)
[2017-12-05 00:23] VITALS: BP 150/81
[2017-12-05 04:00] VITALS: BP 150/74
[2017-12-05 07:27] LABS: BASOPHILS # (AUTO) 0.1 (0.0-0.1); BASOPHILS % 0.6 % (0.0-1.0); EOSINOPHILS # (AUTO) 0.4 (0.0-0.4); EOSINOPHILS % 4.7 % (0.0-6.0); HEMATOCRIT 40.1 % (38.2-49.6); HEMOGLOBIN 13.9 g/dL (14.0-18.0); LYMPHOCYTES # (AUTO) 1.8 (1.0-3.2); LYMPHOCYTES % 21.1 % (18.0-39.1); MEAN CORPUSCULAR HEMOGLOBIN 36.5 pg (28-32); MEAN CORPUSCULAR HGB CONC 34.7 g/dL (31-35); MEAN CORPUSCULAR VOLUME 105.2 fL (81-99); MONOCYTES # (AUTO) 1.4 (0.2-0.8); MONOCYTES % 16.5 % (4.4-11.3); NEUTROPHILS # (AUTO) 4.7 (2.1-6.9); NEUTROPHILS % 56.5 % (38.7-80.0); PLATELET COUNT 327 x10e3/uL (140-360); RED BLOOD COUNT 3.81 x10e6/uL (4.3-5.7)
[2017-12-05 07:56] LABS: ANION GAP 12.1 mmol/L (8-16); BLOOD UREA NITROGEN 18 mg/dL (7-26); BUN/CREATININE RATIO 22 (6-25); CARBON DIOXIDE 33 mmol/L (22-29); CHLORIDE 99 mmol/L (98-107); CREATININE, SERUM 0.83 mg/dL (0.72-1.25); EST GLOMERULAR FILTRATION RATE > 60 ML/MIN (60-); GLUCOSE 101 mg/dL (74-118); MAGNESIUM 1.7 MG/DL (1.3-2.1); POTASSIUM 4.1 mmol/L (3.5-5.1); SODIUM 140 mmol/L (136-145)
[2017-12-05] MEDS: THIAMINE HCL INJ 100 MG in SODIUM CHLORIDE 0.9% 50ML 50 ML IV SCH (09:08)
[2017-12-05] MEDS: FAMOTIDINE 20 MG TAB PO SCH ×2 (09:08→18:15)
[2017-12-05] MEDS: NIFEDIPINE CR 30 MG TAB PO SCH (09:09)
[2017-12-05] MEDS: NICOTINE 21 MG/EA PATCH TOP SCH (09:09)
[2017-12-05] MEDS: HYDROCHLOROTHIAZIDE 25 MG TAB PO SCH (09:09)
[2017-12-05 09:22] VITALS: BP 146/72
[2017-12-05 16:00] VITALS: BP 137/75
[2017-12-05] MEDS: ENOXAPARIN SOD INJ 40 MG/0.4 ML SYR SC SCH (18:15)
[2017-12-05 18:19] VITALS: BP 137/75
[2017-12-05 20:00] VITALS: BP 132/73
[2017-12-05] MEDS: MEMANTINE 10 MG TAB PO SCH (21:18)
[2017-12-05] MEDS: DONEPEZIL HCL 5 MG TAB PO SCH (21:18)
[2017-12-06] VITALS: BP 150/79
[2017-12-06 04:00] VITALS: BP 167/82
[2017-12-06 06:47] LABS: BASOPHILS % 0.5 % (0.0-1.0); EOSINOPHILS # (AUTO) 0.4 (0.0-0.4); EOSINOPHILS % 4.9 % (0.0-6.0); HEMATOCRIT 41.2 % (38.2-49.6); HEMOGLOBIN 14.6 g/dL (14.0-18.0); LYMPHOCYTES # (AUTO) 1.7 (1.0-3.2); LYMPHOCYTES % 20.6 % (18.0-39.1); MEAN CORPUSCULAR HEMOGLOBIN 36.2 pg (28-32); MEAN CORPUSCULAR HGB CONC 35.4 g/dL (31-35); MEAN CORPUSCULAR VOLUME 102.2 fL (81-99); MONOCYTES # (AUTO) 1.1 (0.2-0.8); MONOCYTES % 13.3 % (4.4-11.3); NEUTROPHILS # (AUTO) 4.8 (2.1-6.9); NEUTROPHILS % 60.1 % (38.7-80.0); PLATELET COUNT 383 x10e3/uL (140-360); RED BLOOD COUNT 4.03 x10e6/uL (4.3-5.7); RED CELL DISTRIBUTION WIDTH 11.8 % (11.7-14.4)
[2017-12-06 07:18] LABS: ANION GAP 14.1 mmol/L (8-16); BLOOD UREA NITROGEN 18 mg/dL (7-26); BUN/CREATININE RATIO 20 (6-25); CARBON DIOXIDE 30 mmol/L (22-29); CHLORIDE 98 mmol/L (98-107); CREATININE, SERUM 0.91 mg/dL (0.72-1.25); EST GLOMERULAR FILTRATION RATE > 60 ML/MIN (60-); GLUCOSE 121 mg/dL (74-118); MAGNESIUM 1.7 MG/DL (1.3-2.1); POTASSIUM 4.1 mmol/L (3.5-5.1); SODIUM 138 mmol/L (136-145)
[2017-12-06] MEDS: FAMOTIDINE 20 MG TAB PO SCH ×3 (07:30→15:43)
[2017-12-06 08:00] VITALS: BP 135/77
[2017-12-06] MEDS ORDERED: BETAMETHASONE DISODIUM PHOS 6 MG/ML VIAL ONE (08:08)
[2017-12-06] MEDS ORDERED: BUPIVACAINE 0.25% 30ML SDV INJ ONE (08:09)
[2017-12-06] MEDS ORDERED: CEFAZOLIN SOD 1 GM/NS 50ML 50 ML IV ONE (09:00)
[2017-12-06] MEDS ORDERED: CEFAZOLIN SOD 1 GM VIAL IV SCH (09:00)
[2017-12-06] MEDS ORDERED: MIDAZOLAM HCL 2 MG/2 ML VIAL ONE (09:39)
[2017-12-06] MEDS ORDERED: SODIUM CHLORIDE 0.9% 500ML 1,000 ML ONE (09:39)
[2017-12-06] MEDS ORDERED: LIDOCAINE HCL 2% LOCAL 20 ML VIAL ONE (09:39)
[2017-12-06] MEDS ORDERED: FENTANYL CITRATE/PF 100MCG/2 ML INJ ONE (09:39)
[2017-12-06] MEDS ORDERED: IOPAMIDOL 300MG/ML 50ML INFUS..BTL IV ONE (10:01)
[2017-12-06] MEDS: THIAMINE HCL INJ 100 MG in SODIUM CHLORIDE 0.9% 50ML 50 ML IV SCH (11:42)
[2017-12-06] MEDS: NICOTINE 21 MG/EA PATCH TOP SCH (11:42)
[2017-12-06] MEDS: NIFEDIPINE CR 30 MG TAB PO SCH (11:42)
[2017-12-06] MEDS: HYDROCHLOROTHIAZIDE 25 MG TAB PO SCH (11:42)
[2017-12-06 16:00] VITALS: BP 132/66
[2017-12-06] MEDS ORDERED: ULTRAM 50MG50 MG PO (17:26)
[2017-12-06] MEDS ORDERED: NIFEDIPINE ER30 M1 PO (17:26)
[2017-12-06] MEDS ORDERED: NAMENDA10 MG PO (17:26)
[2017-12-06] MEDS ORDERED: VITAMIN B-1100 MG PO (17:26)
[2017-12-06] MEDS ORDERED: ESIDRIX25 MG PO (17:26)
[2017-12-06] MEDS ORDERED: FAMOTIDINE20 MG PO (17:26)
[2017-12-06] MEDS ORDERED: ONDANSETRON4 MG/2 M1 IV (17:26)
[2017-12-06] MEDS ORDERED: TYLENOL # 31 EA PO (17:26)
[2017-12-06] MEDS ORDERED: NICODERM CQ1 EAC2 TOP (17:26)
[2017-12-06] MEDS ORDERED: Sodium Chloride Flush INJ (17:26)
[2017-12-06] MEDS ORDERED: ARICEPT5 MG PO (17:30)
[2017-12-06] MEDS: DONEPEZIL HCL 5 MG TAB PO SCH (19:57)
[2017-12-06] MEDS: MEMANTINE 10 MG TAB PO SCH (19:57)
--- NOTE | 2017-12-07 08:29 | Discharge Summary ---
PCP: Dr. Efren Drummond PERTINENT HISTORY AND PHYSICAL FINDINGS: Mr. Edwards is a 67-year-old gentleman who had progressive ambulatory dysfunction for the past year getting slower, weaker and having more difficulty getting up. He has bilateral arthritis of the knees with some joint effusions. Two days prior to admission, the patient became incontinent of stool and urine, and became progressively weaker in the lower extremities with having difficulty getting up and walking. The patient has a history of back surgery 30 years ago and knee surgery 30 years ago. PAST MEDICAL HISTORY: Significant for hypertension which he has not been on any medication for the last couple of years. He stated that his blood pressure had been good at home. He is taking no chronic medications. He does have a history of heavy alcohol consumption in the past. He has a history of back and knee surgery many years ago. ALLERGIES: NO KNOWN ALLERGIES. ADMITTING DIAGNOSES 1. Ambulatory dysfunction. 2. Bilateral lower extremity weakness. 3. Urinary and fecal incontinence. 4. New mild dementia, possibly related to previous alcoholism. 5. Bilateral arthritis of the knees with small effusions. 6. History of alcoholism. 7. Hypertension. On admission, the CT scan of the brain was negative. Lumbar spine plain x-ray had shown compression fracture with 25% loss of height in L2 and L4, and significant degenerative joint disease with degenerative disk desiccation and narrowing of L5-S1. Bilateral knee x-ray had shown severe arthritic changes with bilateral effusions, left greater than right, moderate on the left and small on the right. His urinalysis was clear. Lumbar puncture was negative. Oligoclonal bands were still pending as TSH was 7.51. Chemistry had shown normal electrolytes. CO2 30, creatinine 0.89, BUN 18 for a normal GFR. Calcium was 11 which was elevated. Glucose 112. Phosphate 3.1. Magnesium 1.4. Transaminases slightly elevated with an AST of 35, ALT 22, bilirubin slightly elevated at 1.3, and alkaline phos normal at 71. CBC showed a white blood cell count of 13.5 with 80% neutrophils, 9% lymphocytes, 10% monocytes. Hemoglobin was 15.3, hematocrit 42.8 with a platelet count of 175,000. Macrocytic indices. Today, on the day of discharge, WBC is 8.04, hemoglobin 14.6, hematocrit 41.2, and platelets 383,000. Sodium 138, potassium 4.1, chloride 98, CO2 30, BUN 18, creatinine 0.91. Anion gap 14.1. GFR greater than 60. Glucose 121. Calcium 10. Magnesium 1.4. Ammonia level was 34 on December 04, 2017. Folate level was 3.5 on December 01, 2017. Consulting physicians include Dr. Reed Martínez with orthopedics, Dr. Timothy Carr with neurosurgery, Dr. Hargrove with neurology, and Dr. Clifton Guidry with physical medicine and rehabilitation. The patient underwent kyphoplasty today on the day of discharge, December 06, 2017. His discharge disposition is [facility]. Orthopedics performed aspiration of both knees, and 25 mL were aspirated from the left knee and 20 mL were aspirated from the right knee. Antinuclear antibody was negative. During his stay, hydrochlorothiazide and Procardia were used for hypertension. The patient is ambulating about 50 yards with physical therapy. The patient will continue on a cardiac diet. ACTIVITY LEVEL: As per surgeon's recommendations. FOLLOWUP: The patient will follow up with , nurse practitioner, as well as Dr. Hester at the [facility]. DICTATED BY SARAH DEGROOT NP ROVERTO HESTRE MD Job#: [id number] [place]
[2017-12-07] MEDS ORDERED: THIAMINE HCL 100 MG TAB PO SCH (09:00)
--- NOTE | 2017-12-12 14:18 | Diagnostic Imaging Report ---
History:L4 compression fracture failing conservative therapy Comparison studies:MRI 11/29/17 Procedure L4 Vertebral Augmentation Codes: ,35841 Percutaneous vertebral augmentation, 1 vertebral body, unilateral or bilateral cannulation, inclusive of all imaging guidance; lumbar , , , , , , ,22563 Moderate Sedation provided by the same physician performing the diagnostic or therapeutic service that the sedation supports, for patients 5 years of age or older for the first 30 minutes,27131 each additional 15 minutes of intraservice time Sedation: Moderate sedation administered by interventional radiology nurse under supervision of the interventional radiologist with continuous hemodynamic monitoring for 45 minutes. Physician: Neftali Roth MD Medications: Fentanyl 100mcg IV, Versed 2 mg IV Antibiotics: Ancef 1gm IV administered by slow infusion 15 prior to start of case. Fluoroscopy : 5.1 minutes Contrast: 0 ml Radiation exposure:1049.4 cGycm2 Technique: Following informed written consent, patient was placed in a prone position on the angiography table. According to universal protocol, preprocedural time-out was performed with team members agreeing on patient identity, correct site and procedure to be done. The skin was clean, prepped and draped in the usual sterile fashion. [employer] images were obtained. Local and periosteal anesthesia was injected and conscious sedation was administered. Then the L4 vertebral body was accessed under fluoroscopic guidance using a left unipedicular approach. Cavity creation was performed using an inflatable balloon tamp. Then under fluoroscopic guidance 4 cc's of [place] HV PMMA was injected into the vertebral body. Inconsequential extension into the center of the superior disc space is noted. Needle was then removed and hemostasis was acquired by manual compression. A sterile dressing was applied. Procedure was well tolerated and the patient remained neurologically intact and unchanged during and following the procedure. Findings: L4 compression fracture. Post procedure imaging demonstrates bilateral distribution of PMMA. Impression: 1. L4 vertebral augmentation with inflatable balloon tamp, technically and clinically successful. 2. Per PQRS criteria, patient should be screened for osteoporosis. Signed by: Dr. Neftali Roth M.D. on 12/09/2017 12:46 PM
== END 2017-12-06 23:00 | DRG 516 ==
LOC: ER 09:37 → ERHOLD 13:26 → MED/SURG 11-30 17:07
PROVIDERS: ADMIT Internal Medicine; ATTEND Internal Medicine
PROC: 0S9D4ZX Drainage of Left Knee Joint, Percutaneous Endoscopic Approach, Diagnostic (ICD-10-PCS; principal; 2017-12-02)
PROC: 0S9C3ZX Drainage of Right Knee Joint, Percutaneous Approach, Diagnostic (ICD-10-PCS; 2017-12-02)
PROC: 0QS03ZZ Reposition Lumbar Vertebra, Percutaneous Approach (ICD-10-PCS; 2017-12-06)
PROC: 0QU03JZ Supplement Lumbar Vertebra with Synthetic Substitute, Percutaneous Approach (ICD-10-PCS; 2017-12-06)
DX: M48.56XA Collapsed vertebra, not elsewhere classified, lumbar region, initial encounter for fracture (principal); F10.27 Alcohol dependence with alcohol-induced persisting dementia; G62.1 Alcoholic polyneuropathy; R26.89 Other abnormalities of gait and mobility; M62.81 Muscle weakness (generalized); E83.42 Hypomagnesemia; M47.894 Other spondylosis, thoracic region; R32 Unspecified urinary incontinence; Y90.9 Presence of alcohol in blood, level not specified; F10.20 Alcohol dependence, uncomplicated; M17.0 Bilateral primary osteoarthritis of knee; R15.9 Full incontinence of feces; N39.498 Other specified urinary incontinence; I10 Essential (primary) hypertension; M54.5 Low back pain; G89.29 Other chronic pain; R26.2 Difficulty in walking, not elsewhere classified; E87.6 Hypokalemia; M25.462 Effusion, left knee; M25.461 Effusion, right knee
CPT/HCPCS: 22511; 36415; 70450; 72110; 72141; 72157; 72158; 74470; 77001; 80048; 80053; 81001; 82140; 82607; 82746; 82945; 82948; 83735; 83916; 84100; 84152; 84157; 84443; 84550; 85025; 85610; 85651; 85730; 86039; 86140; 87070; 87205; 89051; 97139; C1727; J0360; J0690; J0720; J1650; J2001; J2250; J3411; J7030; J7040; J7050